=== PATIENT | female | born 1930 | race Caucasian/White ===

== ENCOUNTER 2017-08-11 14:42 | Emergency (ER) | payer OTHER ==
[~2017-08-11] VITALS: Ht 162.6 cm; Wt 69.6 kg
[~2017-08-11 14:42] MED LIST: ASPI-435 PO; DORZ2SOL OPB; HYDR25TA5 PO; MVC20 PO; OMEG10007 PO; PRLSR20 PO; SYN88 PO; [UNRECOGNIZED DRUG - REMARK] OPB
[2017-08-11 14:51] VITALS: TEMP 36.7; Ht 162.6 cm; Wt 69.6 kg
[2017-08-11 15:01] VITALS: O2SAT 96
[2017-08-11] MEDS ORDERED: HYDROCHLOROTHIAZIDE 25 MG TAB PO STA (15:21)
[2017-08-11] MEDS ORDERED: LABETALOL HCL IV 5 MG/ML 20ML IV STA (15:21)
--- NOTE | 2017-08-11 15:26 | EMERGENCY ROOM VISIT NOTE ---
History Report prepared by Wilbert: Guevara Lino Under the Supervision of: Dr. Nevaeh Shine M.D. First contact with patient: 15:18 Chief Complaint: HYPERTENSION Stated Complaint: HIGH BLOOD PRESSURE/DIZZY History of Present Illness The patient is a 87 year old female who presents to the Emergency Room with complaints of elevated blood pressure that was taken a couple of hours ago. At this time, the patient was at the drug store waiting to receive an immunization , when she decided to take her blood pressure. Her blood pressure in triage was 165/101. She notes that her PCP took her off of hydrochlorothiazide 6 months ago because her blood pressure was doing well. She has been experiencing headaches, shortness of breath, lightheadedness, and dizziness. She denies any chest pain or abdominal pain. She has had to self-catheterize to urinate for many years around 5/6 times a day for an unknown reason. She has a past medical history of a thyroid disorder, hypertension, UTI's, and cataracts. Source of History: patient Onset: a couple of hours ago Position: other (Global) Symptom Intensity: 165/101 Quality: other (HTN) Timing: waxes/wanes Associated Symptoms: + headache, + SOB, No chest pain, No abdominal pain Review of Systems See HPI for pertinent positives & negatives. A total of 10 systems reviewed and were otherwise negative. Past Medical & Surgical Medical Problems: (1) Hypertension Family History Patient reports no known family medical history. Social History Smoking Status: Former Smoker Smokeless Tobacco Use: No Drug Use: none Marital Status: Housing Status: lives alone Occupation Status: retired Current/Historical Medications Scheduled Aspirin (Aspirin 81), 81 MG PO DAILY AFTERNOON Dorzolamide Hcl (Trusopt), 1 DROP OPB BID Fish Oil (Minerva-3), 1 CAP PO QAM Hydrochlorothiazide (Hydrochlorothiazide), 25 MG PO QAM Levothyroxine Sodium (Synthroid), 88 MCG PO HS Lovastatin (Lovastatin), 20 MG PO HS Omeprazole (Prilosec), 20 MG PO QAM [Sml Eye Drops], 1 DROP OPB QAM Allergies Coded Allergies: No Known Allergies (Unverified , 08/11/17) Physical Exam Vital Signs Date Time Temp Pulse Resp B/P (MAP) Pulse Ox O2 Delivery O2 Flow Rate FiO2 08/11/17 16:52 74 16 156/95 97 Room Air 08/11/17 16:24 70 08/11/17 16:19 78 16 147/88 96 Room Air 08/11/17 15:03 83 16 165/101 95 Room Air 08/11/17 15:01 96 Room Air 08/11/17 14:51 36.7 99 19 154/88 94 Room Air Physical Exam Vital signs reviewed. General: Well-appearing elderly female, in no significant distress. HEENT: No scleral icterus, PERRLA, neck supple. Atraumatic. Cardiovascular: Regular rate and rhythm, no extra sounds. Pulmonary: Clear to auscultation bilaterally, normal work of breathing. Abdomen: Soft, nontender, nondistended, positive bowel sounds. Musculoskeletal: Atraumatic, no peripheral edema. Neurologic: Patient awake alert and oriented x 3, full strength in all 4 extremities. Cranial nerves 2 through 12 grossly intact. Skin: Warm, dry, no rash Medical Decision & Procedures ER Provider Diagnostic Interpretation: Radiology results as stated below per my review and radiologist interpretation: CT HEAD WITHOUT CONTRAST (CT) CLINICAL HISTORY: Headache, hypertension. COMPARISON STUDY: 02/19/2016 TECHNIQUE: Axial CT of the brain is performed from the vertex to the skull base. IV contrast was not administered for this examination. A dose lowering technique was utilized adhering to the principles of ALARA. CT DOSE: 537.48 mGy.cm FINDINGS: No intra or extra-axial mass lesions are visualized. There is no CT evidence of acute cortical infarction. There is no evidence of midline shift. There is no acute hemorrhage. No calvarial fractures are visualized. There are mild white matter hypodensities likely on a small vessel basis. There is no evidence of pathologic ventricular dilatation. There is no evidence of acute sinusitis IMPRESSION: No acute intracranial findings Electronically signed by: Leighton Raymond M.D. 08/11/2017 3:58 PM Dictated Date/Time: 08/11/2017 3:57 PM CHEST ONE VIEW PORTABLE CLINICAL HISTORY: HTN, SOB dyspnea COMPARISON STUDY: 02/26/2008 FINDINGS: Fixed hiatal hernia. Lungs are clear. Diaphragms are smooth. No acute infiltrate. IMPRESSION: Hiatal hernia. Otherwise negative chest The above report was generated using voice recognition software. It may contain grammatical, syntax or spelling errors. Electronically signed by: Zechariah Chávez M.D. 08/11/2017 3:47 PM Dictated Date/Time: 08/11/2017 3:46 PM Laboratory Results 08/11/17 15:18 Red Blood Count 4.42, Mean Corpuscular Volume 95.9, Mean Corpuscular Hemoglobin 33.0, Mean Corpuscular Hemoglobin Concent 34.4, Mean Platelet Volume 11.4, Neutrophils (%) (Auto) 61.6, Lymphocytes (%) (Auto) 28.8, Monocytes (%) (Auto) 6.4, Eosinophils (%) (Auto) 2.5, Basophils (%) (Auto) 0.5, Neutrophils # (Auto) 3.63, Lymphocytes # (Auto) 1.70, Monocytes # (Auto) 0.38, Eosinophils # (Auto) 0.15, Basophils # (Auto) 0.03 08/11/17 15:18 Test 08/11/17 15:18 08/11/17 15:46 White Blood Count 5.90 K/uL (4.8-10.8) Red Blood Count 4.42 M/uL (4.2-5.4) Hemoglobin 14.6 g/dL (12.0-16.0) Hematocrit 42.4 % (37-47) Mean Corpuscular Volume 95.9 fL (80-100) Mean Corpuscular Hemoglobin 33.0 pg (25-34) Mean Corpuscular Hemoglobin Concent 34.4 g/dl (32-36) Platelet Count 215 K/uL (130-400) Mean Platelet Volume 11.4 fL (7.4-10.4) Neutrophils (%) (Auto) 61.6 % Lymphocytes (%) (Auto) 28.8 % Monocytes (%) (Auto) 6.4 % Eosinophils (%) (Auto) 2.5 % Basophils (%) (Auto) 0.5 % Neutrophils # (Auto) 3.63 K/uL (1.4-6.5) Lymphocytes # (Auto) 1.70 K/uL (1.2-3.4) Monocytes # (Auto) 0.38 K/uL (0.11-0.59) Eosinophils # (Auto) 0.15 K/uL (0-0.5) Basophils # (Auto) 0.03 K/uL (0-0.2) RDW Standard Deviation 47.8 fL (36.4-46.3) RDW Coefficient of Variation 13.6 % (11.5-14.5) Immature Granulocyte % (Auto) 0.2 % Immature Granulocyte # (Auto) 0.01 K/uL (0.00-0.02) Anion Gap 9.0 mmol/L (3-11) Est Creatinine Clear Calc Drug Dose 34.5 ml/min Estimated GFR () 52.3 Estimated GFR (Non- 45.1 BUN/Creatinine Ratio 14.5 (10-20) Calcium Level 8.8 mg/dl (8.5-10.1) Total Bilirubin 0.6 mg/dl (0.2-1) Direct Bilirubin 0.2 mg/dl (0-0.2) Aspartate Amino Transf (AST/SGOT) 20 U/L (15-37) Alanine Aminotransferase (ALT/SGPT) 18 U/L (12-78) Alkaline Phosphatase 52 U/L (45-117) Total Creatine Kinase 61 U/L (26-192) Creatine Kinase MB 1.0 ng/ml (0.5-3.6) Creatine Kinase MB Ratio 1.6 (0-3.0) Total Protein 7.2 gm/dl (6.4-8.2) Albumin 3.6 gm/dl (3.4-5.0) Urine Color YELLOW Urine Appearance CLEAR (CLEAR) Urine pH 7.5 (4.5-7.5) Urine Specific Bock 1.012 (1.000-1.030) Urine Protein NEG (NEG) Urine Glucose (UA) NEG (NEG) Urine Ketones NEG (NEG) Urine Occult Blood NEG (NEG) Urine Nitrite NEG (NEG) Urine Bilirubin NEG (NEG) Urine Urobilinogen NEG (NEG) Urine Leukocyte Esterase SMALL (NEG) Urine WBC (Auto) 1-5 /hpf (0-5) Urine RBC (Auto) 0-4 /hpf (0-4) Urine Hyaline Casts (Auto) 0 /lpf (0-5) Urine Epithelial Cells (Auto) >30 /lpf (0-5) Urine Bacteria (Auto) NEG (NEG) Laboratory results per my review. 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 The patient was evaluated in room C6. A complete history and physical examination was performed. 1521: Ordered Labetalol HCl 10 mg IV (not given), Hydrochlorothiazide 25 mg PO 1714: Upon reevaluation, the patient appeared to have improvement of her symptoms. Her blood pressure is down to 150/90. I discussed findings with her. She verbalized agreement of the treatment plan. She was discharged home. Medical Decision Differential diagnosis: Etiologies such as benign positional vertigo, dehydration, hypovolemia, anemia, tumor, infection, hypoglycemia, electrolyte abnormalities, cardiac sources, intracerebral event, toxicologic, neurologic, as well as others were entertained. This patient was evaluated and appeared to be in no distress. IV access was obtained and lab work was drawn. Pt was given HCTZ 25 mg po and IV labetolol was ordered. Pt BP improved and she DID NOT receive the labetolol. EKG reveals chronic changes, no evidence of acute ischemia. Patient's laboratory work is fairly unrevealing. Renal function is normal. CT scan of the head was performed and reveals no evidence of acute intracranial abnormality. Chest x- ray is clear. The patient was reevaluated and was feeling well. She was informed of the findings. She will restart her hydrochlorothiazide this week and follow-up with her PCP. Patient was discharged to the care of her daughter and will return to the ER for worsening of symptoms or any medical concerns. Medication Reconcilliation Current Medication List: was personally reviewed by me Blood Pressure Screening Patient's blood pressure: Elevated blood pressure Blood pressure disposition: Referred to PCP Impression Primary Impression: Hypertension Scribe Attestation The scribe's documentation has been prepared under my direction and personally reviewed by me in its entirety. I confirm that the note above accurately reflects all work, treatment, procedures, and medical decision making performed by me. Departure Information Dispostion Home / Self-Care Referrals Hyacinth Pham D.O. (PCP) Forms HOME CARE DOCUMENTATION FORM, IMPORTANT VISIT INFORMATION, WORK / SCHOOL INSTRUCTIONS Patient Instructions Hypertension Toni, My [facility] Additional Instructions Diagnosis: Hypertension Restart HCTZ 25 mg daily. Avoid excess salt in your diet. Follow up with your doctor this week for reevaluation. Return to the ED for worsening of symptoms or any medical concerns.
[2017-08-11 15:30] LABS: BASO % 0.5 %; BASO ABS # 0.03 K/uL (0-0.2); COMPLETE YES; EOS % 2.5 %; HEMATOCRIT 42.4 % (37-47); IG% 0.2 %; LYMPH % 28.8 %; MEAN CELL VOLUME 95.9 fL (80-100); MEAN CORPUSCULAR HGB CONC 34.4 g/dl (32-36); MEAN PLATELET VOLUME 11.4 fL (7.4-10.4); MONO % 6.4 %; NEUT % 61.6 %; PLATELET COUNT 215 K/uL (130-400); RED BLOOD COUNT 4.42 M/uL (4.2-5.4)
[2017-08-11 15:48] LABS: BUN/CREATININE RATIO 14.5 (10-20); CALCIUM 8.8 mg/dl (8.5-10.1); CREATININE 1.1 mg/dl (0.60-1.20); POTASSIUM 3.4 mmol/L (3.5-5.1)
--- NOTE | 2017-08-11 15:48 | DIAGNOSTIC IMAGING REPORT ---
CHEST ONE VIEW PORTABLE CLINICAL HISTORY: HTN, SOB dyspnea COMPARISON STUDY: 02/26/2008 FINDINGS: Fixed hiatal hernia. Lungs are clear. Diaphragms are smooth. No acute infiltrate. IMPRESSION: Hiatal hernia. Otherwise negative chest The above report was generated using voice recognition software. It may contain grammatical, syntax or spelling errors. Electronically signed by: Zechariah Chávez M.D. 08/11/2017 3:47 PM Dictated Date/Time: 08/11/2017 3:46 PM
[2017-08-11 15:53] LABS: CKMB/CK RATIO 1.6 (0-3.0)
--- NOTE | 2017-08-11 15:59 | DIAGNOSTIC IMAGING REPORT ---
CT HEAD WITHOUT CONTRAST (CT) CLINICAL HISTORY: Headache, hypertension. COMPARISON STUDY: 02/19/2016 TECHNIQUE: Axial CT of the brain is performed from the vertex to the skull base. IV contrast was not administered for this examination. A dose lowering technique was utilized adhering to the principles of ALARA. CT DOSE: 537.48 mGy.cm FINDINGS: No intra or extra-axial mass lesions are visualized. There is no CT evidence of acute cortical infarction. There is no evidence of midline shift. There is no acute hemorrhage. No calvarial fractures are visualized. There are mild white matter hypodensities likely on a small vessel basis. There is no evidence of pathologic ventricular dilatation. There is no evidence of acute sinusitis IMPRESSION: No acute intracranial findings Electronically signed by: Leighton Raymond M.D. 08/11/2017 3:58 PM Dictated Date/Time: 08/11/2017 3:57 PM
[2017-08-11 16:34] LABS: URINE APPEARANCE CLEAR (CLEAR); URINE BILIRUBIN NEG (NEG); URINE COLOR YELLOW; URINE EPITHELIAL CELL AUTO >30 /lpf (0-5); URINE NITRITE NEG (NEG); URINE PH 7.5 (4.5-7.5); URINE SPECIFIC GRAVITY 1.012 (1.000-1.030); UROBILINOGEN NEG (NEG); ZZURINE CULT IF INDIC CATH NO
[2017-08-11 16:48] LABS: MANUAL MICROSCOPIC REQUIRED? NO; REVIEW REQ? NO
[2017-08-11 16:52] VITALS: BP 156/95; PULSE 74; O2SAT 97
== END 2017-08-11 17:27 | disposition home or self-care (01) ==
LOC: C.EDB 14:43 → C.EDC 17:27
DX: I10 Essential (primary) hypertension (principal); E07.9 Disorder of thyroid, unspecified; Z87.440 Personal history of urinary (tract) infections; Z87.891 Personal history of nicotine dependence; Z98.49 Cataract extraction status, unspecified eye; Z79.82 Long term (current) use of aspirin; Z79.899 Other long term (current) drug therapy

== ENCOUNTER 2019-04-06 21:23 | Inpatient (IN) ==
[2019-04-06] MEDS ORDERED: SODIUM CHLORIDE 0.9% 500 ML IV SCH (21:45)
--- NOTE | 2019-04-06 21:56 | Emergency Department Note ---
Entered by Natalie Campbell acting as a scribe for History of Present Illness General Chief complaint: Arrhythmia/Palpitations Stated complaint: PALPITATIONS, SOB, UTI Time Seen by Provider: 04/06/19 21:33 Source: patient and family (daughter ) History of Present Illness Onset (ago): hour(s) (several) Location: chest Pain Consistency: + now resolved and + other (episode ) Maximum Pain Intensity: 5 Quality: + other (heart palpitations ) Associated symptoms: + chest pain (felt like a "weight" ), + loss of appetite, + nausea/vomiting (positive nausea; negative vomiting ), + shortness of breath, + weakness and + other (positive diarrhea; positive burning with urination) Treatments prior to arrival: other (Ativan) The patient is a 89 year old female who presents to the Emergency Room with complaints of a now resolved episode of heart palpitations that began several hours prior to arrival. Per the patient's daughter, the patient complained of shortness of breath. The patient states that she felt as thought there was a "weight" on her chest. She states that she has had nausea and has no appetite. The patient states that she had one episode of diarrhea yesterday, and states that she has felt weak the last few days. The patient's daughter states that the patient currently has a UTI, and states that she has one day left of her Keflex prescription. The patient's daughter states that the patient developed burning with urination after beginning the Keflex, the patient gave another urine sample today at her doctor's office. Per the patient's daughter, the patient had an A tivan prior to arrival. Home Medications Home Medications Medication Instructions Recorded Confirmed Type aspirin [Aspir-81] 81 mg PO DAILY 03/19/19 04/06/19 History dorzolamide-timolol [Cosopt] 1 drp OPB BID 03/19/19 04/06/19 History hydrochlorothiazide 25 mg PO QAM 03/19/19 04/06/19 History levothyroxine [Levoxyl] 50 mcg PO DAILY 03/19/19 04/06/19 History lovastatin 20 mg PO HS 03/19/19 04/06/19 History omega 4-ipy-cue-fish oil [Fish Oil] 1 cap PO DAILY 03/19/19 04/06/19 History omeprazole 20 mg PO DAILY 03/19/19 04/06/19 History ibuprofen [Advil] 200 mg PO Q6H PRN 04/06/19 04/06/19 History lactobacillus combination no.4 3,000 mmu cells PO DAILY 04/06/19 04/06/19 History [Probiotic] Allergies Allergy/AdvReac Type Severity Reaction Status Date / Time clindamycin Allergy Severe Rash Verified 04/06/19 23:26 Past Med/Surg History Medical History Hypertension (Chronic) Closed head injury (Acute) Scalp hematoma (Acute) Jaw pain (Inactive) Odontalgia (Inactive) Surgical History Post corneal transplant Social History Preferred Language: Zambian Feels Safe at Home: Yes Smoking Status: Never smoker Review of Systems See HPI for pertinent positives & negatives. and A total of 10 systems reviewed and were otherwise negative Physical Exam Vital Signs Vital Signs - 24 hr 04/06/19 21:24 04/06/19 21:52 04/06/19 22:02 Temperature 36.4 C L Temperature Source Oral Sepsis Recent Fever Within 48 Hours Yes Sepsis New/Unexplained Change in Mental Status No Sepsis Action Taken by Nursing No Action Required Pulse Rate - Lying 67 Pulse Rate - Sitting 77 Pulse Rate - Standing 93 H Pulse Rate 85 67 Pulse Rate [Right Finger] Respiratory Rate 20 19 Blood Pressure - Lying 116/66 Blood Pressure - Sitting 94/61 L Blood Pressure- Standing 80/44 L Blood Pressure 125/84 120/69 Blood Pressure [Right Arm] Blood Pressure Mean 97 86 Blood Pressure Mean [Right Arm] Pulse Oximetry 96 92 Oxygen Delivery Method Room Air Room Air Room Air 04/06/19 22:31 04/06/19 23:28 Temperature Temperature Source Sepsis Recent Fever Within 48 Hours Sepsis New/Unexplained Change in Mental Status Sepsis Action Taken by Nursing Pulse Rate - Lying Pulse Rate - Sitting Pulse Rate - Standing Pulse Rate 81 Pulse Rate [Right Finger] 69 Respiratory Rate 24 23 Blood Pressure - Lying Blood Pressure - Sitting Blood Pressure- Standing Blood Pressure 121/73 Blood Pressure [Right Arm] 150/97 H Blood Pressure Mean 89 Blood Pressure Mean [Right Arm] 114 Pulse Oximetry 96 95 Oxygen Delivery Method Room Air GENERAL: Patient is in no acute distress. HEENT: No acute trauma, normocephalic atraumatic, mucous membranes moist, no nasal congestion, no scleral icterus. NECK: No stridor, no adenopathy, no meningismus, trachea is midline. LUNGS: Clear to auscultation bilaterally, no wheeze, no rhonchi, breath sounds equal. HEART: Without murmurs gallops or rubs, regular rate and rhythm. ABDOMEN: Soft, nontender, bowel sounds positive, no hernias, no peritonitis. EXTREMITIES: No cyanosis or edema, full range of motion of all the joints without pain or difficulty, no signs for acute trauma. NEUROLOGIC: Oriented x 3, no acute motor or sensory deficits, no focal weakness. SKIN: No rash, no jaundice, no diaphoresis. Course 2132: The patient was evaluated in room C4, and a complete history and physical examination were performed. The patient grew out a Klebsiella pneumoniae in the urine sensitive to Keflex. The patient had been on Augmentin, but this was stopped. 2203: Orthostatic vital signs are positive. 2321: I discussed the case with Dr. Caldwell Hospitalist who accepts the patient for further evaluation. 2323: I updated the patient and her daugher, who are both in agreement with the patient being further evaluated. Consultations Consultation #1: I discussed the case with Dr. Javi Lomeli who accepts the patient for further evaluation. Time: 23:21 Administered Medications Discontinued Medications Sodium Chloride (Nss) 500 mls @ 999 mls/hr IV .Q31M ELICIA Stop: 04/06/19 22:15 Last Infusion: 04/06/19 22:34 Dose: 0 mls/hr Documented by: [id number] Admin: 04/06/19 22:00 Dose: 999 mls/hr Documented by: [id number] Sodium Chloride (Nss 1000ml) 500 mls @ 999 mls/hr IV .Q31M ONE Stop: 04/06/19 22:35 Last Infusion: 04/06/19 23:01 Dose: 0 mls/hr Documented by: [id number] Admin: 04/06/19 22:35 Dose: 999 mls/hr Documented by: [id number] Ceftriaxone Sodium (Rocephin) 1,000 mg in 50 mls @ 100 mls/hr IV NOW STA Stop: 04/06/19 23:42 Last Admin: 04/06/19 23:26 Dose: 100 mls/hr Documented by: [id number] Potassium Chloride (Klor-Con M20) 40 meq PO NOW STA Stop: 04/06/19 22:53 Last Admin: 04/06/19 22:58 Dose: 40 meq Documented by: [id number] Medical Decision Making Differential Diagnosis Differential diagnoses include dehydration, electrolyte imbalance, dysrhythmia, Afib, AK, anemia, UTI, anxiety, and others were considered. Medical Records Attestation: I reviewed the patient's medical records. Home Medications Current Medication List: was personally reviewed by me Laboratory Data Attestation: I reviewed the patient's lab results. Result diagrams: 04/06/19 21:57 04/06/19 21:57 Lab Results 04/06/19 04/06/19 04/06/19 Range/Units 21:57 21:57 22:01 WBC 8.50 (4.8-10.8) K/uL RBC 4.45 (4.2-5.4) M/uL Hgb 15.0 (12.0-16.0) g/dL Hct 41.1 (37-47) % MCV 92.4 (80-100) fL MCH 33.7 (25-34) pg MCHC 36.5 H (32-36) g/dL RDW Std Deviation 47.3 H (36.4-46.3) fL RDW Coeff of Stacy 14.0 (11.5-14.5) % Plt Count 281 (130-400) K/uL MPV 11.6 H (7.4-10.4) fL Immature Gran % (Auto) 0.1 % Neut % (Auto) 68.3 % Lymph % (Auto) 21.4 % [place] % (Auto) 7.4 % Eos % (Auto) 2.1 % Baso % (Auto) 0.7 % Immature Gran # (Auto) 0.01 (0.00-0.02) K/uL Neut # (Auto) 5.80 (1.4-6.5) K/uL Lymph # (Auto) 1.82 (1.2-3.4) K/uL [place] # (Auto) 0.63 H (0.11-0.59) K/uL Eos # (Auto) 0.18 (0-0.5) K/uL Baso # (Auto) 0.06 (0-0.2) K/uL Sodium 138 (136-145) mmol/L Potassium 2.8 L (3.5-5.1) mmol/L Chloride 103 (98-107) mmol/L Carbon Dioxide 27 (21-32) mmol/L Anion Gap 8.0 (3-11) BUN 14 (7-18) mg/dl Creatinine 1.09 (0.6-1.2) mg/dl Est Cr Clr Drug Dosing 31.5 ml/min Est GFR ( Amer) 52.1 Est GFR (Non-Af Amer) 45.0 BUN/Creatinine Ratio 13.1 (10-20) Glucose 96 (70-99) mg/dl Calcium 8.8 (8.5-10.1) mg/dl Magnesium 1.9 (1.8-2.4) mg/dl Total Bilirubin 0.7 (0.2-1) mg/dl AST 42 H (15-37) U/L ALT 53 (12-78) U/L Alkaline Phosphatase 75 (45-117) U/L POC Troponin I < 0.03 (0-0.045) ng/ml Total Protein 6.8 (6.4-8.2) gm/dl Albumin 3.4 (3.4-5.0) gm/dl Globulin 3.4 (2.5-4.0) gm/dl Albumin/Globulin Ratio 1.0 (0.9-2) Urine Color Urine Appearance (Clear) Urine pH (4.5-7.5) Ur Specific [place] (1.000-1.030) Urine Protein (Negative) Urine Glucose (UA) (Negative) Urine Ketones (Negative) Urine Blood (Negative) Urine Nitrite (Negative) Urine Bilirubin (Negative) Urine Urobilinogen (Negative) Ur Leukocyte Esterase (Negative) Urine RBC (0-4) /hpf Urine WBC (0-5) /hpf Ur Epithelial Cells (0-5) /lpf Urine Bacteria (Negative) 04/06/19 Range/Units 22:30 WBC (4.8-10.8) K/uL RBC (4.2-5.4) M/uL Hgb (12.0-16.0) g/dL Hct (37-47) % MCV (80-100) fL MCH (25-34) pg MCHC (32-36) g/dL RDW Std Deviation (36.4-46.3) fL RDW Coeff of Stacy (11.5-14.5) % Plt Count (130-400) K/uL MPV (7.4-10.4) fL Immature Gran % (Auto) % Neut % (Auto) % Lymph % (Auto) % [place] % (Auto) % Eos % (Auto) % Baso % (Auto) % Immature Gran # (Auto) (0.00-0.02) K/uL Neut # (Auto) (1.4-6.5) K/uL Lymph # (Auto) (1.2-3.4) K/uL [place] # (Auto) (0.11-0.59) K/uL Eos # (Auto) (0-0.5) K/uL Baso # (Auto) (0-0.2) K/uL Sodium (136-145) mmol/L Potassium (3.5-5.1) mmol/L Chloride (98-107) mmol/L Carbon Dioxide (21-32) mmol/L Anion Gap (3-11) BUN (7-18) mg/dl Creatinine (0.6-1.2) mg/dl Est Cr Clr Drug Dosing ml/min Est GFR ( Amer) Est GFR (Non-Af Amer) BUN/Creatinine Ratio (10-20) Glucose (70-99) mg/dl Calcium (8.5-10.1) mg/dl Magnesium (1.8-2.4) mg/dl Total Bilirubin (0.2-1) mg/dl AST (15-37) U/L ALT (12-78) U/L Alkaline Phosphatase (45-117) U/L POC Troponin I (0-0.045) ng/ml Total Protein (6.4-8.2) gm/dl Albumin (3.4-5.0) gm/dl Globulin (2.5-4.0) gm/dl Albumin/Globulin Ratio (0.9-2) Urine Color Yellow Urine Appearance Clear (Clear) Urine pH 7.5 (4.5-7.5) Ur Specific [place] 1.010 (1.000-1.030) Urine Protein Negative (Negative) Urine Glucose (UA) Negative (Negative) Urine Ketones Negative (Negative) Urine Blood Trace H (Negative) Urine Nitrite Positive A (Negative) Urine Bilirubin Negative (Negative) Urine Urobilinogen Positive H (Negative) Ur Leukocyte Esterase 3+ H (Negative) Urine RBC 0-4 (0-4) /hpf Urine WBC >30 H (0-5) /hpf Ur Epithelial Cells 5-10 H (0-5) /lpf Urine Bacteria 1+ H (Negative) Imaging Data Radiologist's Impression: Radiology results as stated below per my review and the radiologist's interpretation: XR chest 1V portable HISTORY: weakness COMPARISON: None. FINDINGS: The lungs are clear. Cardiac silhouette is normal in size. No pleural effusions. No pneumothorax. Moderate to large hiatus hernia, unchanged. IMPRESSION: No significant change compared to the prior study. No acute process. Electronically signed by: Ezekiel Velasco M.D. 04/06/2019 9:53 PM ECG Data Attestation: I personally reviewed and interpreted this ECG as follows: Indication: palpitations Rate (beats per minute): 74 Rhythm: normal sinus Findings: + other (possible old lateral infarct ); no PVC and no ST elevation Blood Pressure Blood Pressure Findings: Normal blood pressure MDM Narrative There is no leukocytosis or concerning anemia. No kidney failure. Potassium was low at 2.8. No evidence for hepatitis. Urinalysis did show evidence for infection. Urine culture is pending. Chest film shows a hiatal hernia, there was no pneumonia. EKG shows a sinus rhythm, no acute ischemia. Cardiac enzyme testing x1 is not consistent with acute cardiac injury. On exam, patient was not febrile or toxic. There were no focal neurologic deficits. Orthostatic vital signs were quite positive. The patient was given IV saline, a second IV saline bolus was given. She was given oral potassium for the lower potassium value. She was given IV ceftriaxone as antibiotic coverage. Based on the culture results from a few days ago, the ceftriaxone should be adequate coverage. I do think the patient deserves a hospital stay. She is orthostatic. She is dehydrated. She is failing therapy for her UTI as an outpatient. She had an episode of palpitations and what sounds like near syncope earlier. I did speak to the patient and case management. The on-call hospitalist was consulted. Case management has been involved. Impression & Plan Palpitations, Orthostasis, Near syncope, UTI (urinary tract infection), Failure of outpatient treatment Discharge Plan Visit Data Chief Complaint: Arrhythmia/Palpitations Stated Complaint: PALPITATIONS, SOB, UTI ED Provider: Raheel Del Castillo Discharge Problem: Palpitations, Orthostasis, Near syncope, UTI (urinary tract infection), Failure of outpatient treatment Patient Disposition: Being Evaluated by Hospitalist Forms Stand Alone Forms: My [facility] Prescriptions Prescriptions: No Action ibuprofen [Advil] 200 mg Tablet 200 mg PO Q6H PRN (Reason: pain/fever) RF: 0 Probiotic 3 billion cell Capsule 3,000 mmu cells PO DAILY RF: 0 levothyroxine [Levoxyl] 50 mcg tablet 50 mcg PO DAILY RF: 0 omeprazole 20 mg capsule,delayed release(DR/EC) 20 mg PO DAILY RF: 0 dorzolamide-timolol [Cosopt] 22.3-6.8 mg/mL drops 1 drp OPB BID RF: 0 hydrochlorothiazide 25 mg tablet 25 mg PO QAM RF: 0 lovastatin 20 mg tablet 20 mg PO HS RF: 0 omega 1-wvp-rni-fish oil [Fish Oil] 1,000 mg (120 mg-180 mg) Capsule 1 cap PO DAILY RF: 0 aspirin [Aspir-81] 81 mg Tablet,Delayed Release (Dr/Ec) 81 mg PO DAILY RF: 0 Referrals Referrals: Mary Alice Murphy DO [Primary Care Provider] - Discharge Problem: UTI (urinary tract infection) Qualifiers: Urinary tract infection type: catheter-associated UTI Indwelling urinary catheter type: unspecified Encounter type: subsequent encounter Qualified Code(s): T83.511D - Infection and inflammatory reaction due to indwelling urethral catheter, subsequent encounter The scribe's documentation has been prepared under my direction and personally reviewed by me in its entirety. I confirm that the note above accurately reflects all work, treatment, procedures, and medical decision making performed by me.
[2019-04-06] MEDS ORDERED: SODIUM CHLORIDE 0.9% 1000ML 500 ML IV ONE (22:05)
[2019-04-06 22:20] LABS: Basophils # (auto) 0.06 K/uL (0-0.2); Basophils % (auto) 0.7 %; Eosinophils # (auto) 0.18 K/uL (0-0.5); Eosinophils % (auto) 2.1 %; Hematocrit (blood only) 41.1 % (37-47); Immature Granulocytes # (auto) 0.01 K/uL (0.00-0.02); Immature Granulocytes % (auto) 0.1 %; Lymphocytes # (auto) 1.82 K/uL (1.2-3.4); Lymphocytes % (auto) 21.4 %; Mean Corpuscular Hgb Conc 36.5 g/dL (32-36); Mean Corpuscular Volume 92.4 fL (80-100); Mean Platelet Volume 11.6 fL (7.4-10.4); Monocytes # (auto) 0.63 K/uL (0.11-0.59); Monocytes % (auto) 7.4 %; Neutrophils % (auto) 68.3 %; Platelet Count 281 K/uL (130-400); RDW Standard Deviation 47.3 fL (36.4-46.3); Red Blood Count 4.45 M/uL (4.2-5.4)
[2019-04-06 22:41] LABS: Albumin Level 3.4 gm/dl (3.4-5.0); BUN Creatinine Ratio 13.1 (10-20); Calcium 8.8 mg/dl (8.5-10.1); Creatinine Clr Calc Pharmacy 31.5 ml/min; Est GFR (African American) 52.1; Magnesium 1.9 mg/dl (1.8-2.4); Potassium 2.8 mmol/L (3.5-5.1)
[2019-04-06 22:42] LABS: Appearance Urine Clear (Clear); Bilirubin Urine Negative (Negative); Blood Urine Trace (Negative); Color Urine Yellow; Glucose Urine UA Negative (Negative); Ketones Urine Negative (Negative); Leukocyte Esterase Urine 3+ (Negative); Nitrite Urine Positive (Negative); Urobilinogen Urine Positive (Negative); pH Urine 7.5 (4.5-7.5)
[2019-04-06 22:44] LABS: Bilirubin,Total 0.7 mg/dl (0.2-1); Globulin 3.4 gm/dl (2.5-4.0); Total Protein 6.8 gm/dl (6.4-8.2)
[2019-04-06] MEDS ORDERED: POTASSIUM CHLORIDE 20 MEQ TABCR PO STA (22:52)
[2019-04-06 23:01] LABS: Protein Urine Negative (Negative)
[2019-04-06 23:04] LABS: Bacteria Urine 1+ (Negative); RBC Urine 0-4 /hpf (0-4); WBC Urine >30 /hpf (0-5)
[2019-04-06] MEDS ORDERED: cefTRIAXone SODIUM 1,000 MG/50 ML BAG IV STA (23:13)
--- NOTE | 2019-04-07 02:18 | History and Physical Report ---
DATE OF ADMISSION: 04/07/2019 CHIEF COMPLAINT: Burning micturition. HISTORY OF PRESENT ILLNESS: This is an 89-year-old female with a past medical history significant for hypothyroidism, hyperlipidemia, hypertension, GERD, neurogenic bladder, chronic kidney disease stage III, generalized osteoarthritis. Presents with burning micturition. The patient recently was on clindamycin for a dental procedure, but she developed rash and she was taken off clindamycin and put on prednisone which caused her elevated blood pressure, when the prednisone was stopped and she developed dizziness and lightheadedness, when she was sent to the ER. In the ER, she was found to have hypokalemia and also found to have UTI and she was discharged on Augmentin, but later the culture came back as Klebsiella resistant to Augmentin. She was called and placed on Keflex. She has only 2 more tablets of Keflex left, but again she has developed some burning micturition, again feeling dizzy, lightheaded, not feeling well, so she came to the ER. In the ER, she was found to have orthostatic hypotension and her UA is still positive, so we are called for failed outpatient treatment for UTI and also potassium was 2.8. She received Rocephin and fluids and currently feeling better. Denies any headache, no blurred visions, no earache, no runny nose, no sore throat, no cough. Subjective feeling of fever. No nausea, no abdominal pain, no flank pains. Yesterday, had an episode of diarrhea where she took [id number] antidiarrheal medications and that seemed to have resolved. No blood in the stools. Having burning micturition, but no blood in the urine. No swelling in the legs. No rash currently. Resting comfortable and hemodynamically stable. ALLERGIES: CLINDAMYCIN, LACTULOSE. PAST MEDICAL HISTORY: As mentioned above. PAST SURGICAL HISTORY: Colonoscopy, parathyroidectomy, removal of thyroid lesion, tonsillectomy, repair of bladder and vaginal cystocele. MEDICATIONS: The patient has multivitamin daily, omeprazole 20 mg daily, hydrochlorothiazide 25 mg p.o. daily, levothyroxine 88 mcg daily, lovastatin 20 mg p.o. at bedtime, omega 3 fatty acids 1 capsule daily, dorzolamide and timolol 1 drop both eyes twice daily, aspirin 81 mg p.o. daily. FAMILY HISTORY: Significant for father had leukemia. SOCIAL HISTORY: , lives alone. Quit smoking in 1989, smoked half pack a day for 20 years. Alcohol occasional. No drug use. REVIEW OF SYSTEMS: As per HPI. Rest of the review of systems negative. PHYSICAL EXAMINATION: GENERAL: The patient is old and frail, not in acute distress. VITAL SIGNS: Temperature 36.4, pulse 71, respiratory rate 20, blood pressure 135/79, oxygen 94% on room air. HEENT: No pallor, no icterus. Pupils equal, round, and reactive to light. NECK: No JVD, no masses, no carotid bruits. CARDIOVASCULAR: S1, S2 heard, regular rate and rhythm, no murmur, no gallop. RESPIRATORY SYSTEM: Normal AP diameter. No accessory muscle use. No wheezing, no crackles. ABDOMEN: Soft, bowel sounds present. Nontender. No distention. CENTRAL NERVOUS SYSTEM: Cranial nerves II-XII grossly intact. Nonfocal. EXTREMITIES: No edema, no erythema. LABORATORIES: WBC 8.5, hemoglobin 15, hematocrit 41.1, platelets 281. Sodium 138, potassium 2.8, chloride 103, bicarbonate 27, BUN 14, creatinine 1.09, serum glucose 96, calcium 8.8, magnesium 1.9, total bilirubin 0.7, AST 42, ALT 53, alkaline phosphatase 75, point of care troponin less than 0.03. Urinalysis positive for nitrite and leukocyte esterase. Chest x-ray, no significant change compared to prior process. EKG: Normal sinus rhythm, rate of 74, left anterior fascicular block, no acute ST changes seen. ASSESSMENT AND PLAN: This is an 89-year-old female who presents with failed outpatient treatment for urinary tract infection. 1. Urinary tract infection, complicated. Patient i straight caths because of neurogenic bladder. Recently found to have Klebsiella in the urine, initially prescribed Augmentin, but changed to Keflex as she was resistant to Augmentin and she also has intermittent resistance to second generation cephalosporins. She has 2 more tablets of Keflex left, but again developed burning micturition and feeling dizzy, lightheaded. Has orthostatic hypotension in the ER. Received Rocephin in the ER, but we will place on empiric IV Cefepime. IV fluids. Follow the cultures. Monitor in the med/surg tele. 2. Hypokalemia, will replace. 3. Orthostatic hypotension, probably from hypokalemia or possibly from recent steroid use. Getting IV fluids. We will monitor the orthostatic hypotension. 4. Gastroesophageal reflux disease. Continue PPI. 5. Hypertension. Holding hydrochlorothiazide. We will monitor the blood pressure. 6. Hypothyroidism, on Synthroid. 7. Hyperlipidemia, on statin. 8. Neurogenic bladder, straight caths. Monitor for any retention. 9. Chronic kidney disease stage III. We will follow the labs. Creatinine is 1.09. 10. Deep venous thrombosis prophylaxis, sequential compression devices for now. 11. Disposition: Closely monitor in the med/surg tele. Level 1 full code. PT and OT prior to discharge. Social Service to help with discharge planning. LISA
[2019-04-07] MEDS ORDERED: ACETAMINOPHEN 325 MG TAB PO PRN (02:21)
[2019-04-07] MEDS ORDERED: ONDANSETRON INJ 2 MG/ML 2 ML VIAL IV PRN (02:21)
[2019-04-07] MEDS ORDERED: POTASSIUM CHLORIDE 20 MEQ TABCR PO STA (02:21)
[2019-04-07] MEDS ORDERED: NITROGLYCERIN SL 0.4 MG/TAB TAB SL PRN (02:21)
[2019-04-07] MEDS ORDERED: CEFEPIME CONSULT ACTIVE PRN (02:37)
[2019-04-07] MEDS: NSS + 20MEQ KCL 20 MEQ/1,000 ML BAG IV SCH ×2 (02:48→13:11)
[2019-04-07] MEDS ORDERED: CEFEPIME 2,000 MG in SYRINGE 7.5 ML IV SCH (04:00)
[2019-04-07] MEDS: LEVOTHYROXINE SODIUM 50 MCG TABLET PO SCH (05:16)
[2019-04-07 06:58] LABS: Hematocrit (blood only) 38.3 % (37-47); Hemoglobin 13.4 g/dL (12.0-16.0); Mean Corpuscular Volume 94.3 fL (80-100); RDW Standard Deviation 48.2 fL (36.4-46.3); Red Blood Count 4.06 M/uL (4.2-5.4); White Blood Count 5.69 K/uL (4.8-10.8)
[2019-04-07 06:59] LABS: Basophils # (auto) 0.03 K/uL (0-0.2); Basophils % (auto) 0.5 %; Eosinophils # (auto) 0.19 K/uL (0-0.5); Eosinophils % (auto) 3.3 %; Immature Granulocytes # (auto) 0.01 K/uL (0.00-0.02); Immature Granulocytes % (auto) 0.2 %; Lymphocytes # (auto) 1.35 K/uL (1.2-3.4); Lymphocytes % (auto) 23.7 %; Mean Platelet Volume 11.7 fL (7.4-10.4); Monocytes # (auto) 0.49 K/uL (0.11-0.59); Monocytes % (auto) 8.6 %; Neutrophils # (auto) 3.62 K/uL (1.4-6.5); Neutrophils % (auto) 63.7 %; Platelet Count 227 K/uL (130-400)
[2019-04-07 07:39] LABS: BUN Creatinine Ratio 13.2 (10-20); Calcium 8.1 mg/dl (8.5-10.1); Creatinine Clr Calc Pharmacy 38.1 ml/min; Est GFR (African American) 65.7; Est GFR (Non-African American) 56.7; Potassium 3.8 mmol/L (3.5-5.1)
[2019-04-07] MEDS: ASPIRIN 81 MG ECTAB PO SCH (08:00)
[2019-04-07] MEDS: DORZOLAMIDE/TIMOLOL 22.3/6.8MG/ML 10 ML BTL OPB SCH ×2 (08:00→20:07)
[2019-04-07] MEDS: PANTOprazole 40 MG TAB PO SCH (08:01)
[2019-04-07] MEDS: LACTOBACILLUS ACIDOPHILUS (FLORANEX) TAB PO SCH (08:01)
[2019-04-07] MEDS ORDERED: POLYETHYLENE (MIRALAX) 17 GM PACK PO PRN (17:05)
[2019-04-07] MEDS ORDERED: DOCUSATE SODIUM SYRUP 100 MG/10 ML UDC PO STA (17:05)
[2019-04-07] MEDS ORDERED: DOCUSATE SODIUM 100 MG CAP PO PRN (18:52)
--- NOTE | 2019-04-07 18:52 | Hospitalist Progress Note ---
Date of Service April 07, 2019 Assessment & Plan (1) UTI (urinary tract infection): urine tract infection: Complicated, associated with intermittent straight cath: Recent UTI infection with Klebsiella Was treated initially with p.o. Augmentin, then changed to Keflex as Klebsiella specimen was resistant to Augmentin Presents with worsening of symptoms, burning sensation with urination/associated with dizzy lightheadedness, dehydration: Orthostatic hypo- tension noted in ER Patient is going to be started with IV cefepime Given IV fluids Repeat urine culture ordered Infectious disease consulted (2) Near syncope: Secondary to dehydration, poor p.o. intake due to UTI Ordered IV fluids, monitor BP, patient is monitored in telemetry unit (3) Acute hypokalemia: secondary to poor p.o. intake, dehydration-UTI Potassium replaced, follow PRP (4) Failure of outpatient treatment: Complicated UTI associated withRecent UTI infection with Klebsiella Was treated initially with p.o. 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 IV cefepime ordered, follow urine culture Subjective Feels fine, no nausea vomiting, no no fever or chills comfortable Physical Exam Physical Exam: GENERAL: No sign of distress, HEENT: Sclera nonicteric, pink-purple bilateral equal reactive to light extraocular muscle intact Normal oral mucosa, neck: No JVD, no thyromegaly, trachea midline Lungs: Clear to auscultate, no wheeze or rales Cardiovascular: Regular S1 and S2, no murmur or gallop, no JVD, no lower extremity edema Abdomen: Soft, nontender, bowel sounds active, no hepatosplenomegaly Extremities: No rash or deformity, normal joint, Neuro: No focal neurological deficit, no dysarthria, no facial droop Psych: Alert awake oriented x3: Euthymic Skin: No rash LYMPH NODES: No cervical lymphadenopathy Results & Data Vital Signs (Past 12 Hours) Vital Signs Temp Pulse Pulse Resp BP Pulse Ox 04/07/19 16:00 70 04/07/19 14:47 36.8 C 65 18 126/72 94 04/07/19 11:58 36.9 C 69 18 123/67 95 04/07/19 10:53 93 04/07/19 09:00 60 04/07/19 07:38 36.4 C L 59 L 18 114/72 94 (1) UTI (urinary tract infection) Encounter type: subsequent encounter Indwelling urinary catheter type: unspecified Urinary tract infection type: catheter-associated UTI Qualified Code(s): T83.511D - Infection and inflammatory reaction due to indwelling urethral catheter, subsequent encounter; N39.0 - Urinary tract infection, site not specified
[2019-04-07] MEDS: LOVASTATIN 20 MG TAB PO SCH (20:09)
[2019-04-08] MEDS ORDERED: CEFEPIME 2,000 MG in SYRINGE 7.5 ML IV SCH (04:00)
[2019-04-08] MEDS: LEVOTHYROXINE SODIUM 50 MCG TABLET PO SCH (05:46)
[2019-04-08] MEDS: DORZOLAMIDE/TIMOLOL 22.3/6.8MG/ML 10 ML BTL OPB SCH ×2 (07:51→20:25)
[2019-04-08] MEDS: LACTOBACILLUS ACIDOPHILUS (FLORANEX) TAB PO SCH (07:52)
[2019-04-08] MEDS: PANTOprazole 40 MG TAB PO SCH (07:52)
[2019-04-08] MEDS: ASPIRIN 81 MG ECTAB PO SCH (07:52)
--- NOTE | 2019-04-08 13:14 | Infectious Disease Consult ---
Date of Consultation April 08, 2019 Assessment & Plan (1) Acute UTI: Patient with urinary tract infection with Klebsiella, isolate relatively sensitive, should be able to treat with oral ciprofloxacin for 5 more days. I am not sure that this explains all her symptomatology, and would consider obtaining imaging of abdomen either sonography or CT scanning to ensure no other process. Will discuss with all involved. Will follow. (2) Klebsiella infection: History of Present Illness Reason for Consultation: Complicated UTI Attending Physician: Mary Benítez MD History of Present Illness 89-year-old female with history of hypertension, hyperlipidemia, GERD, urinary retention requiring intermittent self-catheterization with history of prior urinary tract infections, who approximately 1 week ago was given clindamycin for a dental infection, then developed diffuse erythematous rash consistent with drug eruption. Antibiotics were discontinued, but patient continued with generalized weakness and anorexia, some right upper quadrant epigastric pain especially postprandial along with some dysuria. No report of significant fever or chills. She was seen in the emergency room and started on cephalexin for urinary tract infection but symptoms persisted and patient returned and was admitted for further management. Urine culture has grown Klebsiella pneumoniae. Patient currently being treated with cefepime. Blood cultures are negative. Denies flank pain. Allergies Allergy/AdvReac Type Severity Reaction Status Date / Time clindamycin Allergy Severe Rash Verified 04/06/19 23:26 Home Medications Home Medications Medication Instructions Recorded Confirmed Type aspirin [Aspir-81] 81 mg PO DAILY 03/19/19 04/06/19 History dorzolamide-timolol [Cosopt] 1 drp OPB BID 03/19/19 04/06/19 History hydrochlorothiazide 25 mg PO QAM 03/19/19 04/06/19 History levothyroxine [Levoxyl] 50 mcg PO DAILY 03/19/19 04/06/19 History lovastatin 20 mg PO HS 03/19/19 04/06/19 History omega 7-tdo-hkt-fish oil [Fish Oil] 1 cap PO DAILY 03/19/19 04/06/19 History omeprazole 20 mg PO DAILY 03/19/19 04/06/19 History Probiotic 3,000 mmu cells PO DAILY 04/06/19 04/06/19 History ibuprofen [Advil] 200 mg PO Q6H PRN 04/06/19 04/06/19 History ciprofloxacin HCl 500 mg PO BID 5 Days #10 tab 04/08/19 Rx Patient History Medical History Hypertension (Chronic) Closed head injury (Acute) Scalp hematoma (Acute) Jaw pain (Inactive) Odontalgia (Inactive) Surgical History Post corneal transplant Social History Preferred Language: Khmer Communication Ability: Effective Label Remover Required: No Beliefs That Will Affect Care: None Current Living Situation: Alone Other Information That Helps Us Care for You: No Feels Safe at Home: Yes Safety Concerns: Feels Safe At This Time Smoking Status: Former smoker Do You Dip or Chew Tobacco: No Second Hand Exposure: No Tobacco Cessation Education Requested by Patient: No Hx Alcohol Use: Yes Alcohol type: wine Hx Substance Use: No Review of Systems Review of Systems: All systems reviewed & are unremarkable except as noted in HPI & below Physical Exam Constitutional: WD/WN, vitals as above comfortable; no acute distress Eyes: PERRL, conjunctivae normal, anicteric sclerae ENMT: external ear and nose normal, oropharynx normal Neck: trachea midline, no thyromegaly neck nontender Respiratory: normal respiratory effort, lungs clear to auscultation normal percussion; does not use accessory muscles Cardiovascular: Rate/Rhythm: regular rate and regular rhythm Heart Sounds: normal S1 and normal S2; no gallop, no murmur and no cardiac rub Vessels: normal peripheral pulses; no JVD Gastrointestinal (Abdomen): Inspection/Auscultation: abdomen normal to inspection and normal bowel sounds Percussion/Palpation: + abdomen tender (Epigastrium and right upper quadrant); no guarding, no hepatosplenomegaly and no abdominal mass Musculoskeletal: no cyanosis or clubbing, extremities motor strength 5/5 Spine: thoracic spine normal to inspection and lumbar spine normal to inspection; no cervical spinal tenderness Skin: no rashes, warm and dry normal turgor; no lesions Neurologic: patellar DTR's 2+ bilat, sensation intact no focal motor deficits Psychiatric: A+Ox3, euthymic affect Orientation: cooperative Lymphatic: no cervical or axillary lymphadenopathy no inguinal lymphadenopathy Results & Data Vital Signs (Past 12 Hours) Vital Signs Temp Pulse Pulse Resp BP Pulse Ox 04/08/19 09:50 68 04/08/19 09:00 91 H 04/08/19 07:11 36.4 C L 67 18 133/82 95 04/08/19 03:21 36.4 C L 67 16 109/70 96 Laboratory Results Microbiology 04/06/19 22:30 Urine,Straight Cath Urine Culture - Preliminary No growth - Less than 1,000 colonies/mL, Final report to follow. Diagnostic Findings Microbiology 04/06/19 22:30 Urine,Straight Cath Urine Culture - Preliminary No growth - Less than 1,000 colonies/mL, Final report to follow. Admit Date: 04/06/19 MR#: [id number]: [address] Acct ID:[id number]: Date: 1930City Zip: [place] [address] Age: 89Location: ED Sex: F Room/Bed: Att Phy: Diagnosis: PALPITATIONS, SOB, UTI Betzaida Phy: Mary Alice Murphy, DOService Date: 04/06/19 Fam Phy: Interpreting Phy: Ezekiel Velasco MD Admit Phy: Ordering Phy: Raheel Del Castillo M.D. cc: ~ XR chest 1V portable HISTORY: weakness COMPARISON: None. FINDINGS: The lungs are clear. Cardiac silhouette is normal in size. No pleural effusions. No pneumothorax. Moderate to large hiatus hernia, unchanged. IMPRESSION: No significant change compared to the prior study. No acute process. Electronically signed by: Ezekiel Velasco M.D. 04/06/2019 9:53 PM Dictated: 04/06/192151 Transcribed: 04/06/192151
--- NOTE | 2019-04-08 14:18 | Hospitalist Progress Note ---
Date of Service April 08, 2019 Assessment & Plan (1) UTI (urinary tract infection): urine tract infection: Complicated, associated with intermittent straight cath: Chronic neurogenic bladder Recent UTI infection with Klebsiella Was treated initially with p.o. Augmentin, then changed to Keflex as Klebsiella specimen was resistant to Augmentin Presents with worsening of symptoms, burning sensation with urination/associated with dizzy lightheadedness, dehydration: Orthostatic hypo-tension noted in ER Urine culture: Positive for Klebsiella, sensitivities available Appreciate input from ID No evidence of sepsis CT abdomen pelvis shows no intra-abdominal pathology, chronically distended urinary bladder Antibiotic is changed to p.o. ciprofloxacin will be treated for 7 more days Plan for discharge home tomorrow (2) Near syncope: Secondary to dehydration, poor p.o. intake due to UTI Given IV fluids No further episode, vitals remained stable, Telemetry discontinued Out of bed ambulate as tolerated Plan to discharge home tomorrow (3) Acute hypokalemia: secondary to poor p.o. intake, dehydration-UTI Corrected (4) Failure of outpatient treatment: Complicated UTI associated withRecent UTI infection with Klebsiella Was treated initially with p.o. Augmentin, then changed to Keflex as Klebsiella specimen was resistant to Augmentin Intermittent straight cath, Culture growing Klebsiella, antibiotic changed to p.o. 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 Urine culture shows Klebsiella Antibiotic adjusted as per sensitivity CT abdomen pelvis shows no evidence of pathology CODE STATUS: Full code Disposition: Plan to discharge home with oral antibiotic Subjective Feels fine, no nausea vomiting, no no fever or chills comfortable Physical Exam Constitutional: WD/WN, vitals as above comfortable; no acute distress Eyes: PERRL, conjunctivae normal, anicteric sclerae ENMT: external ear and nose normal, oropharynx normal Neck: trachea midline, no thyromegaly neck nontender Respiratory: normal respiratory effort, lungs clear to auscultation normal percussion; does not use accessory muscles Cardiovascular: Rate/Rhythm: regular rate and regular rhythm Heart Sounds: normal S1 and normal S2; no gallop, no murmur and no cardiac rub Vessels: normal peripheral pulses; no JVD Gastrointestinal (Abdomen): Inspection/Auscultation: abdomen normal to inspection and normal bowel sounds Percussion/Palpation: + abdomen tender (Epigastrium and right upper quadrant); no guarding, no hepatosplenomegaly and no abdominal mass Musculoskeletal: no cyanosis or clubbing, extremities motor strength 5/5 Spine: thoracic spine normal to inspection and lumbar spine normal to inspection; no cervical spinal tenderness Skin: no rashes, warm and dry normal turgor; no lesions Neurologic: patellar DTR's 2+ bilat, sensation intact no focal motor deficits Psychiatric: A+Ox3, euthymic affect Orientation: cooperative Lymphatic: no cervical or axillary lymphadenopathy no inguinal l ymphadenopathy Results & Data Vital Signs (Past 12 Hours) Vital Signs Temp Pulse Pulse Resp BP Pulse Ox 04/08/19 09:50 68 04/08/19 09:00 91 H 04/08/19 07:11 36.4 C L 67 18 133/82 95 04/08/19 03:21 36.4 C L 67 16 109/70 96 (1) UTI (urinary tract infection) Encounter type: subsequent encounter Indwelling urinary catheter type: unspecified Urinary tract infection type: catheter-associated UTI Qualified Code(s): T83.511D - Infection and inflammatory reaction due to indwelling urethral catheter, subsequent encounter; N39.0 - Urinary tract infection, site not specified
[2019-04-08] MEDS ORDERED: IOVERSOL 100ml IV PRN (17:33)
--- NOTE | 2019-04-08 18:07 | CT Scan Report ---
CT OF THE ABDOMEN AND PELVIS WITH CONTRAST CLINICAL HISTORY: Urinary retention. Lower abdominal pain. COMPARISON STUDY: None. TECHNIQUE: Following IV administration of 94 mL of Optiray-320, axial images of the abdomen and pelvi s were obtained from the lung bases to the proximal femurs. Images were reviewed in the axial, sagitt al, and coronal planes. IV contrast was administered without complication. Automated exposure contro l was utilized for the study. A dose lowering technique was utilized adhering to the principles of A ANUSHKA. CT DOSE: 274.58 mGy.cm FINDINGS: Moderate sized hiatal hernia is noted. A trace left pleural effusion. There is mild cardiom egaly. No pneumatosis, free air or portal venous gas is present. The liver, spleen, adrenal glands an d pancreas are unremarkable. There is no biliary or pancreatic ductal dilatation. A few subcentimeter renal lesions are too small to characterize but likely reflect cysts. There is mild bilateral renal atrophy. There is no hydronephrosis or hydroureter. Moderate distention of the bladder is noted there is no evidence for a bowel obstruction. Colonic diverticulosis is noted without evidence for acute d iverticulitis. The appendix is normal. There is no ascites. There is no lymphadenopathy. There is mod erate atherosclerotic plaque within the abdominal aorta. There are no suspicious osseous lesions. IMPRESSION: 1. Moderate distention of the bladder. No hydronephrosis. No ureteral calculi. 2. No acute process within the abdomen or pelvis. 3. Colonic diverticulosis without evidence for acute diverticulitis. 4. Moderate-sized hiatal hernia. Electronically signed by: Ganesh Lackey M.D. 04/08/2019 6:06 PM
[2019-04-08] MEDS ORDERED: PROMETHAZINE HCL 12.5 MG in SODIUM CHLORIDE 0.9% 50 ML IV PRN (18:25)
[2019-04-08] MEDS ORDERED: BISACODYL 5 MG TABEC PO ONE (18:45)
[2019-04-08] MEDS ORDERED: SOD PHOSPHATE/SOD BIPHOSPHATE ENEMA 132 ML BTL PR ONE (18:45)
[2019-04-08] MEDS: CIPROFLOXACIN 500 MG TAB PO SCH (20:23)
[2019-04-08] MEDS: LOVASTATIN 20 MG TAB PO SCH (20:24)
[2019-04-08] MEDS: DOCUSATE SODIUM 100 MG CAP PO SCH (21:26)
[2019-04-09] MEDS ORDERED: cefTRIAXone SODIUM 1,000 MG in DEXTROSE 5% 50 ML IV SCH (04:00)
[2019-04-09] MEDS: LEVOTHYROXINE SODIUM 50 MCG TABLET PO SCH (06:16)
[2019-04-09 06:36] LABS: BUN Creatinine Ratio 13.3 (10-20); Calcium 8.6 mg/dl (8.5-10.1); Creatinine Clr Calc Pharmacy 38.6 ml/min; Est GFR (African American) 66.6; Est GFR (Non-African American) 57.5; Potassium 3.4 mmol/L (3.5-5.1)
[2019-04-09] MEDS: DOCUSATE SODIUM 100 MG CAP PO SCH (07:52)
[2019-04-09] MEDS: CIPROFLOXACIN 500 MG TAB PO SCH (07:52)
[2019-04-09] MEDS: LACTOBACILLUS ACIDOPHILUS (FLORANEX) TAB PO SCH (07:53)
[2019-04-09] MEDS: ASPIRIN 81 MG ECTAB PO SCH (07:53)
[2019-04-09] MEDS: DORZOLAMIDE/TIMOLOL 22.3/6.8MG/ML 10 ML BTL OPB SCH (07:53)
[2019-04-09] MEDS: PANTOprazole 40 MG TAB PO SCH (07:53)
[2019-04-09] MEDS: POLYETHYLENE (MIRALAX) 17 GM PACK PO SCH ×2 (07:54→11:11)
[2019-04-09] MEDS ORDERED: hydroCHLOROthiazide 25 MG TAB PO SCH (09:00)
[2019-04-09] MEDS ORDERED: POTASSIUM CHLORIDE 10 MEQ TABCR PO STA (14:30)
--- NOTE | 2019-04-09 15:26 | Hospitalist Progress Note ---
Date of Service April 09, 2019 Assessment & Plan (1) UTI (urinary tract infection): urine tract infection: Complicated, associated with intermittent straight cath: Chronic neurogenic bladder Recent UTI infection with Klebsiella Was treated initially with p.o. Augmentin, then changed to Keflex as Klebsiella specimen was resistant to Augmentin Presents with worsening of symptoms, burning sensation with urination/associated with dizzy lightheadedness, dehydration: Orthostatic hypo-tension noted in ER Urine culture: Positive for Klebsiella, sensitivities available Appreciate input from ID No evidence of sepsis CT abdomen pelvis shows no intra-abdominal pathology, chronically distended urinary bladder Antibiotic is changed to p.o. ciprofloxacin will be treated for 7 more days Remained stable hemodynamically, stable to be discharged home Patient given instruction/leaflet for: Hygiene regarding intermittent self cath Asked to discard old catheter, with any recurrence of symptoms/burning sensation , suprapubic discomfort, frequency Patient will need close follow-up with family physician, and possible intermittent in 3 to 4weeks UA/urine culture check, earlier with any urinary symptoms Hospital follow-up scheduled with family physician Dr.Laura Hargrove on 04/11/2019 @ 1:15 PM (2) Near syncope: Secondary to dehydration, poor p.o. intake due to UTI Given IV fluids No further episode, vitals remained stable, Telemetry discontinued Out of bed ambulate as tolerated Stable to be discharged home today (3) Acute hypokalemia: secondary to poor p.o. intake, dehydration-UTI Corrected (4) Failure of outpatient treatment: Complicated UTI associated with Recent UTI infection with Klebsiella Was treated initially with p.o. Augmentin, then changed to Keflex as Klebsiella specimen was resistant to Augmentin Culture growing Klebsiella, antibiotic changed to p.o. 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 Urine culture shows Klebsiella Antibiotic adjusted as per sensitivity CT abdomen pelvis shows no evidence of pathology CODE STATUS: Full code Disposition: Stable to be discharged home today Subjective Patient felt a little bit more tired, than usual, No fever chills, no nausea, no urinary symptoms Very good to be discharged home, daughter present at bedside Physical Exam Constitutional: WD/WN, vitals as above comfortable; no acute distress Eyes: PERRL, conjunctivae normal, anicteric sclerae ENMT: external ear and nose normal, oropharynx normal Neck: trachea midline, no thyromegaly neck nontender Respiratory: normal respiratory effort, lungs clear to auscultation normal percussion; does not use accessory muscles Cardiovascular: Rate/Rhythm: regular rate and regular rhythm Heart Sounds: normal S1 and normal S2; no gallop, no murmur and no cardiac rub Vessels: normal peripheral pulses; no JVD Gastrointestinal (Abdomen): Inspection/Auscultation: abdomen normal to inspection and normal bowel sounds No CVA tenderness Musculoskeletal: no cyanosis or clubbing, extremities motor strength 5/5 Skin: no rashes, warm and dry normal turgor; no lesions Neurologic: patellar DTR's 2+ bilat, sensation intact no focal motor deficits Psychiatric: A+Ox3, euthymic affect Orientation: cooperative Results & Data Vital Signs (Past 12 Hours) Vital Signs Temp Pulse Resp BP BP Pulse Ox 04/09/19 15:02 36.9 C 91 H 18 130/77 100/63 95 04/09/19 07:09 36.9 C 91 H 18 130/77 95 (1) UTI (urinary tract infection) Encounter type: subsequent encounter Indwelling urinary catheter type: unspecified Urinary tract infection type: catheter-associated UTI Qualified Code(s): T83.511D - Infection and inflammatory reaction due to indwelling urethral catheter, subsequent encounter; N39.0 - Urinary tract infection, site not specified
--- NOTE | 2019-04-09 15:27 | Discharge Summary ---
Date of Service April 09, 2019 Admission HPI Per Admitting Provider Patient: FARZAD GARCIA Date: 04/07/19 MR#: [id number] Phy: Mary Benítez M.D. Acct ID:[id number] Phy: RickeyyovanyBetty, DO Date: 1930Fam Phy: Betty Sanford, DO Age: 89Location: 2N Sex: F Room/Bed: [facility] cc: Kingsley Andrade MD~ DICTATED BY: Kingsley Andrade MD DATE OF ADMISSION: 04/07/2019 CHIEF COMPLAINT: Burning micturition. HISTORY OF PRESENT ILLNESS: This is an 89-year-old female with a past medical history significant for hypothyroidism, hyperlipidemia, hypertension, GERD, neurogenic bladder, chronic kidney disease stage III, generalized osteoarthritis. Presents with burning micturition. The patient recently was on clindamycin for a dental procedure, but she developed rash and she was taken off clindamycin and put on prednisone which caused her elevated blood pressure, when the prednisone was stopped and she developed dizziness and lightheadedness, when she was sent to the ER. In the ER, she was found to have hypokalemia and also found to have UTI and she was discharged on Augmentin, but later the culture came back as Klebsiella resistant to Augmentin. She was called and placed on Keflex. She has only 2 more tablets of Keflex left, but again she has developed some burning micturition, again feeling dizzy, lightheaded, not feeling well, so she came to the ER. In the ER, she was found to have orthostatic hypotension and her UA is still positive, so we are called for failed outpatient treatment for UTI and also potassium was 2.8. She received Rocephin and fluids and currently feeling better. Denies any headache, no blurred visions, no earache, no runny nose, no sore throat, no cough. Subjective feeling of fever. No nausea, no abdominal pain, no flank pains. Yesterday, had an episode of diarrhea where she took [id number] antidiarrheal medications and that seemed to have resolved. No blood in the stools. Having burning micturition, but no blood in the urine. No swelling in the legs. No rash currently. Resting comfortable and hemodynamically stable. Principal Diagnosis UTI:Klebsiella/complicated UTI associated with injury presents straight cath Discharge Exam Constitutional WD/WN, vitals as above comfortable; no acute distress Eyes PERRL, conjunctivae normal, anicteric sclerae ENMT external ear and nose normal, oropharynx normal Neck trachea midline, no thyromegaly neck nontender Respiratory normal respiratory effort, lungs clear to auscultation normal percussion; does not use accessory muscles Cardiovascular Rate/Rhythm: regular rate and regular rhythm Heart Sounds: normal S1 and normal S2; no gallop, no murmur and no cardiac rub Vessels: normal peripheral pulses; no JVD Gastrointestinal (Abdomen) Inspection/Auscultation: abdomen normal to inspection and normal bowel sounds Percussion/Palpation: + abdomen tender (Epigastrium and right upper quadrant); no guarding, no hepatosplenomegaly and no abdominal mass Musculoskeletal no cyanosis or clubbing, extremities motor strength 5/5 Spine: thoracic spine normal to inspection and lumbar spine normal to inspection; no cervical spinal tenderness Skin no rashes, warm and dry normal turgor; no lesions Neurologic patellar DTR's 2+ bilat, sensation intact no focal motor deficits Psychiatric A+Ox3, euthymic affect Orientation: cooperative Lymphatic no cervical or axillary lymphadenopathy no inguinal lymphadenopathy Discharge Data Allergies Allergy/AdvReac Type Severity Reaction Status Date / Time clindamycin Allergy Severe Rash Verified 04/06/19 23:26 Consultations 04/06/19 23:19 ED Decision to Admit Stat 04/07/19 02:21 Consult Case Management - Discharge Planning Routine 04/07/19 19:00 Consult Infectious Diseases Routine Ordered Studies 04/08/19 16:50 CT abd pelvis IV con only Routine Hospital Course (1) UTI (urinary tract infection): urine tract infection: Complicated, associated with intermittent straight cath: Chronic neurogenic bladder Recent UTI infection with Klebsiella Was treated initially with p.o. Augmentin, then changed to Keflex as Klebsiella specimen was resistant to Augmentin Presents with worsening of symptoms, burning sensation with urination/associated with dizzy lightheadedness, dehydration: Orthostatic hypo- tension noted in ER Urine culture: Positive for Klebsiella, sensitivities available Appreciate input from ID No evidence of sepsis CT abdomen pelvis shows no intra-abdominal pathology, chronically distended urinary bladder Antibiotic is changed to p.o. ciprofloxacin will be treated for 7 more days Remained stable hemodynamically, stable to be discharged home Patient given instruction/leaflet for: Hygiene regarding intermittent self cath Asked to discard old catheter, with any recurrence of symptoms/burning sensation , suprapubic discomfort, frequency Patient will need close follow-up with family physician, and possible intermittent in 3 to 4weeks UA/urine culture check, earlier with any urinary symptoms Hospital follow-up scheduled with family physician Dr.Laura Hargrove on 04/11/2019 @ 1:15 PM (2) Near syncope: Secondary to dehydration, poor p.o. intake due to UTI Given IV fluids No further episode, vitals remained stable, Telemetry discontinued Out of bed ambulate as tolerated Stable to be discharged home today (3) Acute hypokalemia: secondary to poor p.o. intake, dehydration-UTI Corrected (4) Failure of outpatient treatment: Complicated UTI associated with Recent UTI infection with Klebsiella Was treated initially with p.o. Augmentin, then changed to Keflex as Klebsiella specimen was resistant to Augmentin Culture growing Klebsiella, antibiotic changed to p.o. 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 Urine culture shows Klebsiella Antibiotic adjusted as per sensitivity CT abdomen pelvis shows no evidence of pathology CODE STATUS: Full code Disposition: Stable to be discharged home today Total Time Total Time Spent Total Time Spent (In Minutes): Approximate 45 minutes Total Time Includes: Examination of the Patient, Discharge Planning and Medication Reconciliation Discharge Plan Discharge Items Patient Disposition: Home - Home Health Services Reason For Visit: UTI Discharge Diagnosis: COMPLICATED UTI /CHRONIC NEUROGENIC BLADDER Discharge Goals: Decrease discomfort Activity: Resume your previous activity Non-emergency contact: Primary Care Provider Call non-emergency contact if: you have any medication questions Follow-up/Referrals: Betty Sanford DO [Primary Care Provider] - 04/14/19 1:15 pm Diet: Heart Healthy Addtl Provider Instructions: HOSPITAL FOLLOW UP WITH DR BETTY SANFORD ON Wednesday04/11/2019 @1: 15 PM Prescriptions: New ciprofloxacin HCl 500 mg tablet 500 mg PO BID 5 Days Qty: 10 RF: 0 Continued ibuprofen [Advil] 200 mg Tablet 200 mg PO Q6H PRN (Reason: pain/fever) RF: 0 Probiotic 3 billion cell Capsule 3,000 mmu cells PO DAILY RF: 0 levothyroxine [Levoxyl] 50 mcg tablet 50 mcg PO DAILY RF: 0 omeprazole 20 mg capsule,delayed release(DR/EC) 20 mg PO DAILY RF: 0 dorzolamide-timolol [Cosopt] 22.3-6.8 mg/mL drops 1 drp OPB BID RF: 0 hydrochlorothiazide 25 mg tablet 25 mg PO QAM RF: 0 lovastatin 20 mg tablet 20 mg PO HS RF: 0 omega 5-jbk-gyl-fish oil [Fish Oil] 1,000 mg (120 mg-180 mg) Capsule 1 cap PO DAILY RF: 0 aspirin [Aspir-81] 81 mg Tablet,Delayed Release (Dr/Ec) 81 mg PO DAILY RF: 0 Stand-Alone Forms: [facility]/Other Patient Handouts: Self Catheterization Women, Catheterization Self Dc Women Discharge Orders: Discharge Order (Routine); Ordered 04/09/19 Ordered By: Mary Benítez Admission Data Admit Date/Time: 04/07/19 01:24 Attending Provider: Mary Benítez Admit Provider: Kingsley Andrade Primary Care Provider: Betty Sanford Other Providers: Kingsley Andrade ; Chon Bliss Service: Telemetry Medical Other Interventions: Discharge Summary Assessment (RN) Last Done: 04/09/19 15:02
[2019-04-09 15:34] VITALS: BP 128/83; PULSE 84; TEMP 97.9; O2SAT 96
== END 2019-04-09 16:37 | disposition home or self-care (01) | DRG 699 ==
LOC: ED 21:23 → 2N 04-07 01:24